=== PATIENT | female | born 1995 | race Caucasian/White ===

== ENCOUNTER 2017-02-13 15:01 | Emergency (ER) | payer BC ==
[~2017-02-13] VITALS: Ht 160 cm; Wt 66.5 kg
[~2017-02-13 15:01] MED LIST: Bentyl PO; PYRIDIUM100 MG PO; Protonix PO
[2017-02-13] MEDS ORDERED: FIORICET,ESG1 TABLET PO (16:59)
[2017-02-13 17:21] VITALS: BP 120/86
== END 2017-02-13 17:22 | disposition home or self-care (01) ==
LOC: EME 15:01
DX: R51 Headache (principal)
CPT/HCPCS: 99281; 99284; J0780; J1885; J7030